=== PATIENT | male | born 1945 | race Two or more races ===

== ENCOUNTER 2023-06-06 09:11 | Emergency (ER) | payer OTHER ==
[~2023-06-06] VITALS: Ht 172.7 cm; Wt 74.9 kg
[2023-06-06] MEDS ORDERED: METH-1182 PO (10:10)
[2023-06-06] MEDS ORDERED: ACET-1080 PO (10:10)
[2023-06-06] MEDS ORDERED: ACETAMINOPHEN 500 MG TAB PO ONE (10:15)
[2023-06-06 10:33] VITALS: BP 120/65; PULSE 81; RESP 18; O2SAT 98
== END 2023-06-06 10:34 | disposition home or self-care (01) ==
LOC: ER 09:11
DX: S39.012A Strain of muscle, fascia and tendon of lower back, initial encounter (principal); M51.37 Other intervertebral disc degeneration, lumbosacral region; E11.9 Type 2 diabetes mellitus without complications; W18.09XA Striking against other object with subsequent fall, initial encounter; Y93.89 Activity, other specified; Y92.89 Other specified places as the place of occurrence of the external cause; Y99.8 Other external cause status
CPT/HCPCS: 72100